=== PATIENT | female | born 1965 | race Caucasian/White ===

== ENCOUNTER 2018-04-05 09:48 | Day surgery (SDC) | payer MEDICARE, MEDICAID ==
[~2018-04-05] VITALS: Ht 160 cm; Wt 114.5 kg
[2018-04-05 09:20] VITALS: BP 128/74
[2018-04-05 10:10] VITALS: BP 112/67
[2018-04-05] MEDS ORDERED: LEVO75TA7 PO (10:25)
[2018-04-05] MEDS ORDERED: [UNRECOGNIZED DRUG - CODE] (10:26)
[2018-04-05] MEDS ORDERED: RISP0.5T3 PO (10:27)
[2018-04-05] MEDS ORDERED: RISP1TAB3 PO (10:28)
[2018-04-05] MEDS ORDERED: MULT-1121 (10:28)
[2018-04-05] MEDS ORDERED: VENL75TA4 PO (10:29)
[2018-04-05] MEDS ORDERED: CHOL10002 PO (10:30)
[2018-04-05] MEDS ORDERED: DOCU250C4 PO (10:32)
[2018-04-05] MEDS ORDERED: LAMO100T89 PO (10:32)
[2018-04-05] MEDS ORDERED: LCARNITINE (10:34)
[2018-04-05] MEDS ORDERED: KEP500T PO (10:35)
[2018-04-05] MEDS ORDERED: DIVA-52 (10:36)
[2018-04-05] MEDS ORDERED: ROPI0.252 PO (10:37)
[2018-04-05] MEDS ORDERED: LACT10SO PO (10:37)
[2018-04-05] MEDS ORDERED: LURA20TA PO (10:39)
[2018-04-05] MEDS ORDERED: MIDAZolam 5mg/5ml vial ONE (10:41)
[2018-04-05] MEDS ORDERED: fentaNYL/PF 50MCG/1 ML 2ML syringe ONE (10:41)
[2018-04-05 11:16] VITALS: BP 120/63
[2018-04-05 11:26] VITALS: BP 114/69
[2018-04-05 11:36] VITALS: BP 129/73
[2018-04-05 11:42] VITALS: BP 148/69
== END 2018-04-05 11:53 | disposition home or self-care (01) ==
LOC: GI LAB 09:48
PROVIDERS: ATTEND Internal Medicine Gastroenterology
DX: Z12.11 Encounter for screening for malignant neoplasm of colon (principal); K64.8 Other hemorrhoids
CPT/HCPCS: G0121; J2250; J3010; J7030; 45378; 99152; A4620

== ENCOUNTER 2018-05-10 13:49 | Day surgery (SDC) | payer MEDICARE, MEDICAID ==
[~2018-05-10] VITALS: Ht 162.6 cm; Wt 110.0 kg
[~2018-05-10 13:49] MED LIST: CHOL10002 PO; DIVA-52; DOCU250C4 PO; KEP500T PO; LACT10SO PO; LAMO100T89 PO; LCARNITINE; LEVO75TA7 PO; LURA20TA PO; MULT-1121; RISP0.5T3 PO; RISP1TAB3 PO; ROPI0.252 PO; VENL75TA4 PO; [UNRECOGNIZED DRUG - CODE]
[2018-05-10 14:00] VITALS: BP 136/54
[2018-05-10] MEDS ORDERED: LEVO500C3 PO (14:10)
[2018-05-10] MEDS ORDERED: POLY17PO10 PO (14:11)
[2018-05-10] MEDS ORDERED: CRAN500C8 PO (14:12)
[2018-05-10] MEDS ORDERED: HYDR20OI TOP (14:13)
[2018-05-10] MEDS ORDERED: POTA8TAB8 PO (14:14)
[2018-05-10] MEDS ORDERED: FURO-150 PO (14:15)
[2018-05-10] MEDS ORDERED: BISA-155 PO (14:15)
[2018-05-10] MEDS ORDERED: MIDAZolam 5mg/5ml vial ONE (14:45)
[2018-05-10] MEDS ORDERED: fentaNYL/PF 50MCG/1 ML 2ML syringe ONE (14:45)
[2018-05-10 15:20] VITALS: BP 123/66
[2018-05-10 15:30] VITALS: BP 110/56
[2018-05-10 15:40] VITALS: BP 117/62
[2018-05-10 15:50] VITALS: BP 125/85
== END 2018-05-10 16:00 | disposition home or self-care (01) ==
LOC: GI LAB 13:49
PROVIDERS: ATTEND Internal Medicine Gastroenterology
DX: Z12.11 Encounter for screening for malignant neoplasm of colon (principal); K63.5 Polyp of colon; K64.8 Other hemorrhoids; K63.89 Other specified diseases of intestine
CPT/HCPCS: 45385; 99152; 99153; J2250; J3010; J7030; A4620

== ENCOUNTER 2018-10-23 09:30 | Emergency (ER) | payer MEDICARE, MEDICAID ==
[~2018-10-23] VITALS: Ht 172.7 cm; Wt 118.2 kg
[~2018-10-23 09:30] MED LIST changes: +BISA-155 PO; +CRAN500C8 PO; +DOCU-329 PO; -DOCU250C4 PO; +FURO-150 PO; +HYDR20OI TOP; -LCARNITINE; +LEVO500C3 PO; +POLY17PO10 PO; +POTA8TAB8 PO; -RISP1TAB3 PO; -ROPI0.252 PO
[2018-10-23] MEDS ORDERED: ondansetron/PF 4mg/2ml inj IV ONE (10:00)
[2018-10-23] MEDS ORDERED: normal saline 1000ML IV soln IVB ONE (10:00)
[2018-10-23 10:33] LABS: BASOPHILS % (AUTO) 0.5 % (0-1); EOSINOPHILS % (AUTO) 0.7 % (0-6); HEMATOCRIT 38.9 % (35.0-45.0); HEMOGLOBIN 12.9 g/dl (12.0-16.0); LYMPHOCYTES # (AUTO) 1.4 X10'3 (1.1-4.8); LYMPHOCYTES % (AUTO) 25.3 % (21-51); MEAN CORPUSCULAR HEMOGLOBIN 31.8 PG (27.0-31.0); MEAN CORPUSCULAR HGB CONC 33.1 g/dL (33.0-36.5); MEAN CORPUSCULAR VOLUME 96.1 FL (78-98); MEAN PLATELET VOLUME 7.3 FL (7.4-10.4); MONOCYTES # (AUTO) 0.4 X10'3 (0-0.9); MONOCYTES % (AUTO) 7.6 % (2-12); NEUTROPHILS # (AUTO) 3.7 X10'3 (1.8-7.7); NEUTROPHILS % (AUTO) 65.9 % (42-75); PLATELET COUNT 208 X10'3 (140-440); RED BLOOD COUNT 4.04 X10'6 (4.20-5.60); RED CELL DISTRIBUTION WIDTH 14.3 % (11.5-14.5); WHITE BLOOD COUNT 5.6 X10'3 (4.5-11.0)
[2018-10-23 10:43] LABS: ALANINE AMINOTRANSFERASE 61 U/L (12-78); ALBUMIN 3.4 G/DL (3.4-5.0); ALBUMIN/GLOBULIN RATIO 0.7 (1.1-1.5); ALKALINE PHOSPHATASE 94 IU/L (46-116); ANION GAP 8 (8-16); ASPARTATE AMINO TRANSFERASE 43 U/L (10-37); BILIRUBIN,TOTAL 0.4 MG/DL (0.1-1.0); BLOOD UREA NITROGEN 11 MG/DL (7-18); BUN/CREATININE RATIO 13.9 (6.6-38.0); CALCIUM 9.4 MG/DL (8.5-10.1); CHLORIDE 99 MMOL/L (99-107); CREATININE 0.79 MG/DL (0.40-0.90); GLUCOSE 220 MG/DL (70-104); LIPASE 102 U/L (73-393); POTASSIUM 4.6 MMOL/L (3.5-5.1); SODIUM 138 MMOL/L (135-145); TOTAL CARBON DIOXIDE 30.9 MMOL/L (24-32); TOTAL PROTEIN 8.2 G/DL (6.4-8.2); eGFR 76 ML/MIN
--- NOTE | 2018-10-23 11:13 | NUR ---
PT STATES THAT SHE CANNOT URINATE AT THIS TIME
[2018-10-23 11:55] LABS: CLARITY,URINE CLEAR (Clear); COLOR,URINE YELLOW (Yellow); GLUCOSE, URINE NEGATIVE (Neg); KETONES,URINE 15 mg/dl (Neg); LEUKOCYTE ESTERASE ,URINE NEGATIVE (Neg); NITRITES, URINE NEGATIVE (Neg); OCCULT BLOOD,URINE NEGATIVE (Neg); PH,URINE 7.5 (4.8-8.0); PROTEIN,URINE TRACE mg/dl (Neg)
[2018-10-23 12:02] LABS: UA COLLECTION TYPE FOLEY CATH
[2018-10-23 12:03] LABS: BACTERIA,URINE NONE SEEN /HPF (Neg); MUCUS STRANDS FEW /LPF (Neg); RBC,URINE 0-2 /HPF (0-2); SQUAMOUS EPITHELIAL CELL,UR FEW /LPF (FEW)
[2018-10-23 13:20] VITALS: BP 130/77
[2018-10-23] MEDS ORDERED: ONDA4TAB12 PO (16:34)
[2018-10-23] MEDS ORDERED: CEPH500C5 PO (16:34)
== END 2018-10-23 13:48 | disposition home or self-care (01) ==
LOC: ER 09:30
DX: R11.10 Vomiting, unspecified (principal); R10.13 Epigastric pain; R53.1 Weakness; E11.9 Type 2 diabetes mellitus without complications; R62.50 Unspecified lack of expected normal physiological development in childhood; Z79.899 Other long term (current) drug therapy
CPT/HCPCS: 36415; 71045; 80053; 81001; 83690; 84484; 85025; 87088; 93005; 96374; 99284; J2405; J7030

== ENCOUNTER 2018-10-23 14:24 | Emergency (ER) | payer MEDICARE, MEDICAID ==
[~2018-10-23] VITALS: Ht 162.6 cm; Wt 115.0 kg
[2018-10-23 15:01] VITALS: BP 148/76
[2018-10-23] MEDS ORDERED: metoclopramide 5 mg/ml inj IM ONE (16:00)
[2018-10-23] MEDS ORDERED: diphenhydrAMINE 50 mg/ml inj IM ONE (16:00)
[2018-10-23] MEDS ORDERED: CEPH500C5 PO (16:34)
[2018-10-23] MEDS ORDERED: ONDA4TAB12 PO (16:34)
== END 2018-10-23 17:43 | disposition home or self-care (01) ==
LOC: ER 14:24
DX: R10.13 Epigastric pain (principal); R11.10 Vomiting, unspecified; E11.9 Type 2 diabetes mellitus without complications; F31.9 Bipolar disorder, unspecified; Z79.2 Long term (current) use of antibiotics; Z79.899 Other long term (current) drug therapy
CPT/HCPCS: 96372; 99284; J1200; J2765

== ENCOUNTER 2021-12-27 18:25 | Emergency (ER) | payer MEDICARE, MEDICAID ==
[~2021-12-27] VITALS: Ht 162.6 cm; Wt 97.0 kg
[~2021-12-27 18:25] MED LIST changes: -DOCU-329 PO; +DOCU250C96 PO; -LACT10SO PO; +LACT10SO3 PO; +LAMO100T PO; -LAMO100T89 PO; +ONDA4TAB12 PO; -RISP0.5T3 PO; +RISP0.5T65 PO
[2021-12-27 19:50] LABS: HEMATOCRIT 35.2 % (35.0-45.0); HEMOGLOBIN 11.6 g/dl (12.0-16.0); MEAN CORPUSCULAR HEMOGLOBIN 32.8 PG (27.0-31.0); RED BLOOD COUNT 3.54 X10'6 (4.20-5.60)
[2021-12-27 19:54] LABS: MEAN CORPUSCULAR VOLUME 99.5 FL (78-98); MEAN PLATELET VOLUME 8.5 FL (7.4-10.4); PLATELET COUNT 220 X10'3 (140-440); RED CELL DISTRIBUTION WIDTH 13.4 % (11.5-14.5); WHITE BLOOD COUNT 6.4 X10'3 (4.5-11.0)
[2021-12-27 20:08] LABS: ALBUMIN 3.4 G/DL (3.4-5.0); ANION GAP 1 (8-16); BLOOD UREA NITROGEN 38 MG/DL (7-18); BUN/CREATININE RATIO 24.7 (6.6-38.0); CALCIUM 9.8 MG/DL (8.5-10.1); CHLORIDE 101 MMOL/L (99-107); CREATININE 1.54 MG/DL (0.40-0.90); GLUCOSE 114 MG/DL (70-104); SODIUM 139 MMOL/L (135-145); TOTAL CARBON DIOXIDE 37.1 MMOL/L (24-32); eGFR 35 ML/MIN
[2021-12-27] MEDS ORDERED: PATIROMER CALCIUM SORBITEX 8.4 GM POWD.PACK PO ONE (21:25)
[2021-12-27] MEDS ORDERED: normal saline 1000ML IV soln IVB ONE (21:25)
[2021-12-27 22:52] LABS: PLATELET ESTIMATE NORMAL; TOTAL CELLS COUNTED 100
[2021-12-27 23:41] VITALS: BP 118/74
== END 2021-12-27 23:38 | disposition home or self-care (01) ==
LOC: ER 18:26
DX: E87.5 Hyperkalemia (principal); E11.9 Type 2 diabetes mellitus without complications; E03.9 Hypothyroidism, unspecified; F31.9 Bipolar disorder, unspecified; Z88.8 Allergy status to other drugs, medicaments and biological substances; Z88.2 Allergy status to sulfonamides; Z79.899 Other long term (current) drug therapy
CPT/HCPCS: 36415; 80048; 85007; 85025; 96360; 99285; J7030

== ENCOUNTER 2023-05-01 08:02 | Emergency (ER) | payer MEDICARE, MEDICAID ==
[~2023-05-01] VITALS: Ht 165.1 cm; Wt 120.0 kg
[~2023-05-01 08:02] MED LIST changes: +DOCU-395 PO; -DOCU250C96 PO; -LURA20TA PO; +LURA20TA8 PO; -RISP0.5T65 PO; +RISP0.5T80 PO
[2023-05-01 08:20] VITALS: TEMP 98.2
[2023-05-01] MEDS: ketorolac trometh inj. 60 MG/2 ML VIAL IM ONE (08:34)
[2023-05-01 10:33] VITALS: BP 196/72; PULSE 76; RESP 16; O2SAT 96
== END 2023-05-01 10:37 | disposition home or self-care (01) ==
LOC: ER 08:02
DX: M54.50 Low back pain, unspecified (principal); E11.9 Type 2 diabetes mellitus without complications; F31.9 Bipolar disorder, unspecified; Z88.2 Allergy status to sulfonamides; Z88.8 Allergy status to other drugs, medicaments and biological substances; Z79.899 Other long term (current) drug therapy; W19.XXXA Unspecified fall, initial encounter; Y93.89 Activity, other specified; Y92.89 Other specified places as the place of occurrence of the external cause; Y99.8 Other external cause status
CPT/HCPCS: 72131; 96372; 99285; J1885